=== PATIENT | female | born 2000 | race American Indian/Alaskan Native ===

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

== ENCOUNTER 2021-10-12 02:39 | Emergency (ER) | payer MEDICAID ==
[2021-10-12] MEDS ORDERED: Lidocaine 1% 5 ML VIAL INJECT ONE (02:56)
[2021-10-12] MEDS ORDERED: Lidocaine 1% 2 ML ONE (02:57)
[2021-10-12] MEDS ORDERED: Ibuprofen 600 MG Tab PO ONE (03:08)
[2021-10-12] MEDS ORDERED: Lidocaine 1% PF 2 ML SDV INJECT ONE (03:20)
[2021-10-12 04:37] VITALS: BP 129/74; PULSE 102
[2021-10-12] MEDS ORDERED: Acetaminophen/HYDROcodone 325-5 MG Tab PO ONE ×2 (04:51)
== END 2021-10-12 05:00 | disposition home or self-care (01) ==
LOC: MW.ED 02:39
DX: S82.042A Displaced comminuted fracture of left patella, initial encounter for closed fracture (principal); S01.111A Laceration without foreign body of right eyelid and periocular area, initial encounter; Z88.0 Allergy status to penicillin; Y04.2XXA Assault by strike against or bumped into by another person, initial encounter
CPT/HCPCS: 12011; 70486; 73564; 99284; A9270